=== PATIENT | female | born 1990 | race Two or more races ===

== ENCOUNTER 2019-03-28 15:21 | Emergency (ER) | payer SELFPAY ==
[~2019-03-28] VITALS: Ht 172.7 cm; Wt 63.5 kg
[2019-03-28 15:44] VITALS: BP 111/69
[2019-03-28] MEDS ORDERED: KETOROLAC TROMETHAMINE INJ 30 MG/ML VIAL ONE (16:33)
[2019-03-28] MEDS ORDERED: DEXAMETHASONE SOD PHOSPHATE 10 MG/ML VIAL ONE (16:33)
[2019-03-28] MEDS ORDERED: HYDROCODONE/APAP 5/325MG 1 EACH TABLET ONE (16:34)
[2019-03-28] MEDS: HYDROCODONE/APAP 5/325MG 1 EACH TABLET PO ONE (16:53)
[2019-03-28] MEDS: DEXAMETHASONE SOD PHOSPHATE 4 MG/ML VIAL IM ONE (17:13)
[2019-03-28] MEDS: KETOROLAC TROMETHAMINE INJ 60 MG/2 ML VIAL IM ONE (17:14)
== END 2019-03-28 18:19 | disposition home or self-care (01) ==
LOC: ER 15:26
DX: M54.17 Radiculopathy, lumbosacral region (principal); F17.200 Nicotine dependence, unspecified, uncomplicated
CPT/HCPCS: 84703; 96372 ×2; 99283; J1100; J1885